=== PATIENT | male | born 1975 | race American Indian/Alaskan Native ===

== ENCOUNTER 2017-10-02 19:02 | Emergency (ER) | payer MEDICAID ==
[2017-10-02 19:10] VITALS: RESP 16; TEMP 98.6; O2SAT 100
[2017-10-02] MEDS ORDERED: FOSPHENYTOIN IM STA (19:43)
[2017-10-02] MEDS ORDERED: SODIUM CHLORIDE 0.9% IM STA (19:43)
--- NOTE | 2017-10-02 20:31 | ED PDOC ---
HPI: Seizure Time Seen by Provider: 10/02/17 19:27 Chief Complaint (Nursing): Seizure Chief Complaint (Provider): seizure History Per: Patient History/Exam Limitations: no limitations Recent Seizure Activity Began: Just Before Arrival Additional Complaint(s): pt reports h/o seizure disorder which required IM cerebyx to be injected by his father, but has been unable to obtain for 3 weeks Reports since then he has had 13 seizures, and then today 2 episodes. Pt known by me from frequent visits in the past for frequent visits for seizures and noncompliance with medications Past Medical History Reviewed: Historical Data, Nursing Documentation, Vital Signs Vital Signs: Last Vital Signs Temp 98.6 F 10/02/17 19:07 Pulse 94 H 10/02/17 19:07 Resp 16 10/02/17 19:07 BP 126/84 10/02/17 19:07 Pulse Ox 100 10/02/17 19:07 - Medical History PMH: Seizures - Family History Family History: States: No Known Family Hx - Social History Current smoker - smoking cessation education provided: Yes Alcohol: None Drugs: Denies - Allergies Allergies/Adverse Reactions: Allergies Allergy/AdvReac Type Severity Reaction Status Date / Time No Known Allergies Allergy Verified 10/02/17 19:10 Review of Systems ROS Statement: Except As Marked, All Systems Reviewed And Found Negative (and as per HPI) Neurological: Positive for: Seizures, Headache, Dizziness Physical Exam - Reviewed Nursing Documentation Reviewed: Yes Vital Signs Reviewed: Yes - Physical Exam Appears: Positive for: Non-toxic, No Acute Distress Head Exam: Positive for: ATRAUMATIC, NORMOCEPHALIC Skin: Positive for: Warm, Dry Eye Exam: Positive for: EOMI, PERRL ENT: Positive for: Pharynx Is (clear), Other (poor dentition) Neck: Positive for: Painless ROM, Supple Cardiovascular/Chest: Positive for: Regular Rate, Rhythm, Chest Non Tender. Negative for: Murmur Respiratory: Negative for: Accessory Muscle Use, Respiratory Distress Gastrointestinal/Abdominal: Positive for: Soft. Negative for: Tenderness Back: Positive for: Normal Inspection. Negative for: Decreased ROM Extremity: Positive for: Normal ROM. Negative for: Deformity Lymphatic: Negative for: Adenopathy Neurologic/Psych: Positive for: Alert, Oriented (x3). Negative for: Motor/ Sensory Deficits - ECG O2 Sat by Pulse Oximetry: 100 Disposition - Clinical Impression Clinical Impression: Seizure disorder - Disposition Referrals: [facility] [Outside] - 10/06/17 Disposition: Routine/Home Disposition Time: 20:20 Condition: STABLE Additional Instructions: CONTINUE YOUR MEDICATIONS PRESCRIBED FOLLOW UP WITH YOUR NEUROLOGIST AND CLINIC WITHIN A WEEK Instructions: Seizures, Adult (DC)
[2017-10-02] MEDS: FOSPHENYTOIN IM ONE ×2 (21:05→21:06)
[2017-10-02 21:32] VITALS: BP 120/84; PULSE 90
== END 2017-10-02 21:32 | disposition home or self-care (01) ==
LOC: H.ER 19:02
DX: G40.909 Epilepsy, unspecified, not intractable, without status epilepticus (principal)
CPT/HCPCS: 96372; 99284; Q2009

== ENCOUNTER 2017-10-06 12:42 | Emergency (ER) | payer MEDICAID ==
[2017-10-06 12:47] VITALS: BP 122/84; PULSE 86; RESP 16; TEMP 98.6; O2SAT 100
--- NOTE | 2017-10-06 13:24 | ED PDOC ---
HPI: Seizure Time Seen by Provider: 10/06/17 12:49 Chief Complaint (Nursing): Seizure History Per: Patient, EMS History/Exam Limitations: no limitations Number Of Seizures: One (today) Associated Symptoms: denies: Bit Tongue Additional Complaint(s): 42-YEAR-OLD male presents to ED via EMS for seizure. Pt reports he had 3 seizures yesterday and 1 seizure today. Pt reports he has not been taking his phenytoin in 21 days because pharmacy needs to order more. (-) tongue biting, (- ) head trauma. PMD: Candido Past Medical History Reviewed: Historical Data, Nursing Documentation, Vital Signs Vital Signs: Last Vital Signs Temp 98.6 F 10/06/17 12:45 Pulse 86 10/06/17 12:45 Resp 16 10/06/17 12:45 BP 122/84 10/06/17 12:45 Pulse Ox 100 10/06/17 13:33 - Medical History PMH: Seizures - Surgical History Other surgeries: dental surgery - Family History Family History: States: Unknown Family Hx - Social History Current smoker - smoking cessation education provided: No Alcohol: None Drugs: Denies - Allergies Allergies/Adverse Reactions: Allergies Allergy/AdvReac Type Severity Reaction Status Date / Time No Known Allergies Allergy Verified 10/02/17 19:10 Review of Systems ROS Statement: Except As Marked, All Systems Reviewed And Found Negative Constitutional: Negative for: Other (head trauma) ENT: Negative for: Other (tongue biting) Neurological: Positive for: Seizures Physical Exam - Reviewed Nursing Documentation Reviewed: Yes Vital Signs Reviewed: Yes - Physical Exam Appears: Positive for: Well Head Exam: Positive for: ATRAUMATIC, NORMAL INSPECTION, NORMOCEPHALIC Skin: Positive for: Normal Color, Warm, Dry Eye Exam: Positive for: Normal appearance, EOMI, PERRL ENT: Positive for: Normal ENT Inspection Neck: Positive for: Normal Cardiovascular/Chest: Positive for: Regular Rate, Rhythm Respiratory: Positive for: Normal Breath Sounds. Negative for: Respiratory Distress Gastrointestinal/Abdominal: Positive for: Normal Exam Back: Positive for: Normal Inspection Extremity: Positive for: Normal ROM. Negative for: Deformity Neurologic/Psych: Positive for: Alert, Oriented - ECG O2 Sat by Pulse Oximetry: 100 (RA) Pulse Ox Interpretation: Normal Medical Decision Making Medical Decision Making: Impression(s): Seizure 13:00 Plan: - Glucose, POC Routine 12:55 Glucose, POC Routine 74 mg/dl 13:21 Patient wants to leave as per RN. This patient is choosing to leave against medical advice. ED Provider has personally explained to the pt that choosing to do so may result in permanent bodily harm or . ED Provider discussed at great length that without further evaluation and monitoring there may be unforeseen circumstances and/or deterioration causing permanent bodily harm or as a result of their choice. The pt is alert, oriented, and shows the mental capacity to make clear decisions regarding the pts health care at this time. The pt has been advised that they should return to the ED immediately if they change their mind at any time, or if their condition begins to change or worsening any way. Scribe Attestation: Documented by Eloy Matos, acting as a scribe for Sara Fregoso MD. Provider Scribe Attestation: All medical record entries made by the Scribe were at my direction and personally dictated by me. I have reviewed the chart and agree that the record accurately reflects my personal performance of the history, physical exam, medical decision making, and the department course for this patient. I have also personally directed, reviewed, and agree with the discharge instructions and disposition. Disposition - Clinical Impression Clinical Impression: Recurrent seizures - Patient ED Disposition Is Patient to be Admitted: No - Disposition Disposition: Against Medical Advice Disposition Time: 13:28 Condition: UNKNOWN Forms: [employer] (Kyrgyz)
== END 2017-10-06 13:36 | disposition left against medical advice (07) ==
LOC: H.ER 12:42
DX: G40.909 Epilepsy, unspecified, not intractable, without status epilepticus (principal)

== ENCOUNTER 2017-10-14 23:41 | Emergency (ER) | payer MEDICAID ==
[2017-10-14 23:45] VITALS: RESP 16
[2017-10-15] MEDS ORDERED: Fosphenytoin 100 mg/2 ml Inj IM STA (00:04)
--- NOTE | 2017-10-15 00:08 | ED PDOC ---
HPI: Seizure Time Seen by Provider: 10/14/17 23:47 Chief Complaint (Nursing): Seizure History Per: Patient History/Exam Limitations: no limitations Recent Seizure Activity Began: Just Before Arrival Number Of Seizures: One Quality Of Seizure: Generalized Precipitating Factor(s): Missed Dose Of Anti-seizure Medication Additional History Per: Patient Additional Complaint(s): Patient with long-standing history of seizures presenting with seizure while in a cab, states that has not been able to get his fosphenytoin because of problems with the pharmacy. Patient asking to go home, does not want any intervention because he is aware of why he is having seizures, due to inability to get his medications. Past Medical History Reviewed: Historical Data, Nursing Documentation, Vital Signs Vital Signs: Last Vital Signs Temp 98.6 F 10/14/17 23:43 Pulse 98 H 10/14/17 23:43 Resp 16 10/14/17 23:43 BP 132/97 H 10/14/17 23:43 Pulse Ox 100 10/14/17 23:43 - Medical History PMH: Seizures - Family History Family History: States: Unknown Family Hx - Allergies Allergies/Adverse Reactions: Allergies Allergy/AdvReac Type Severity Reaction Status Date / Time No Known Allergies Allergy Verified 10/14/17 23:43 Review of Systems ROS Statement: Except As Marked, All Systems Reviewed And Found Negative Neurological: Positive for: Seizures Physical Exam - Reviewed Nursing Documentation Reviewed: Yes Vital Signs Reviewed: Yes - Physical Exam Appears: Positive for: Well, Non-toxic, No Acute Distress Head Exam: Positive for: ATRAUMATIC, NORMAL INSPECTION, NORMOCEPHALIC Skin: Positive for: Normal Color, Warm, DRY Eye Exam: Positive for: EOMI, Normal appearance, PERRL ENT: Positive for: Normal ENT Inspection Neck: Positive for: Normal, Painless ROM Cardiovascular/Chest: Positive for: Regular Rate, Rhythm Respiratory: Positive for: CNT, Normal Breath Sounds Gastrointestinal/Abdominal: Positive for: Normal Exam, Soft Back: Positive for: Normal Inspection Extremity: Positive for: Normal ROM Neurologic/Psych: Positive for: 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 Negative for: Motor/Sensory Deficits, Mood/Affect, Aphasia, Facial Droop - ECG O2 Sat by Pulse Oximetry: 100 Pulse Ox Interpretation: Normal Medical Decision Making Medical Decision Makin Patient presenting with seizure in setting of medication non-compliance -patient states he'll be able to get his medications tomorrow -normal vitals, normal exam -will give dose of cerebryx and refer to patient's neurologist Disposition - Clinical Impression Clinical Impression: Seizure disorder - Disposition Referrals: [facility] [Outside] Disposition: Routine/Home Disposition Time: 00:11 Condition: STABLE Instructions: Epilepsy in Adults
[2017-10-15] MEDS ORDERED: FOSPHENYTOIN IM STA (00:44)
[2017-10-15 05:28] VITALS: BP 110/64; PULSE 73; TEMP 97.9; O2SAT 97
== END 2017-10-15 05:33 | disposition home or self-care (01) ==
LOC: H.ER 23:41
DX: G40.909 Epilepsy, unspecified, not intractable, without status epilepticus (principal)
CPT/HCPCS: 96372; 99285; Q2009

== ENCOUNTER 2017-10-18 22:46 | Emergency (ER) | payer MEDICAID ==
--- NOTE | 2017-10-18 23:05 | ED PDOC ---
HPI: Seizure Time Seen by Provider: 10/18/17 22:53 Chief Complaint (Nursing): Seizure Chief Complaint (Provider): seizure History Per: Patient History/Exam Limitations: no limitations Additional Complaint(s): Pt has seizure prior to arrival. Known well to ER for frequent visits for noncompliance claiming he is unable to take medications by mouth and can only get IM injections of dilantin and having issues with the pharmacy providing it. Past Medical History Reviewed: Historical Data, Nursing Documentation, Vital Signs Vital Signs: Last Vital Signs Temp 98 F 10/18/17 22:47 Pulse 77 10/18/17 22:47 Resp 20 10/18/17 22:47 BP 117/82 10/18/17 22:47 Pulse Ox 100 10/18/17 23:11 - Medical History PMH: Seizures Denies: Chronic Kidney Disease - Family History Family History: States: Unknown Family Hx - Social History Current smoker - smoking cessation education provided: No Alcohol: None Drugs: Denies - Allergies Allergies/Adverse Reactions: Allergies Allergy/AdvReac Type Severity Reaction Status Date / Time No Known Allergies Allergy Verified 10/18/17 23:04 Review of Systems ROS Statement: Except As Marked, All Systems Reviewed And Found Negative (and as per HPI) Constitutional: Positive for: Malaise Neurological: Positive for: Seizures, Dizziness. Negative for: Weakness, Numbness, Change in Speech Physical Exam - Reviewed Nursing Documentation Reviewed: Yes Vital Signs Reviewed: Yes - Physical Exam Appears: Positive for: Non-toxic, No Acute Distress Head Exam: Positive for: ATRAUMATIC, NORMOCEPHALIC Skin: Positive for: Warm, Dry Eye Exam: Positive for: EOMI, PERRL Neck: Positive for: Painless ROM, Supple Cardiovascular/Chest: Positive for: Regular Rate, Rhythm. Negative for: Murmur Respiratory: Positive for: Normal Breath Sounds. Negative for: Respiratory Distress Gastrointestinal/Abdominal: Positive for: Soft. Negative for: Tenderness Back: Positive for: Normal Inspection. Negative for: Decreased ROM Extremity: Positive for: Normal ROM. Negative for: Deformity Lymphatic: Negative for: Adenopathy Neurologic/Psych: Positive for: Alert. Negative for: Motor/Sensory Deficits - ECG O2 Sat by Pulse Oximetry: 100 Disposition - Clinical Impression Clinical Impression: Seizure disorder Counseled Patient/Family Regarding: Studies Performed, Diagnosis - Disposition Referrals: Rocky Reis MD [Medical Doctor] - Disposition: Routine/Home Disposition Time: 23:03 Condition: STABLE Additional Instructions: TAKE ALL YOUR MEDICATIONS PRESCRIBED. Instructions: Seizures, Adult (DC)
[2017-10-18] MEDS ORDERED: SODIUM CHLORIDE 0.9% IM ONE ×2 (23:19→23:26)
[2017-10-18] MEDS ORDERED: FOSPHENYTOIN IM ONE ×2 (23:19→23:26)
[2017-10-18] MEDS ORDERED: Fosphenytoin 100 mg/2 ml Inj ONE ×2 (23:26→23:27)
[2017-10-18] MEDS ORDERED: Fosphenytoin 100 mg/2 ml Inj IM STA (23:30)
[2017-10-18 23:49] VITALS: BP 118/72; PULSE 76; RESP 18; TEMP 98.1; O2SAT 99
== END 2017-10-18 23:49 | disposition home or self-care (01) ==
LOC: H.ER 22:46
DX: G40.909 Epilepsy, unspecified, not intractable, without status epilepticus (principal); Z91.19 Patient's noncompliance with other medical treatment and regimen
CPT/HCPCS: 96372; 99284; Q2009

== ENCOUNTER 2017-10-25 23:02 | Emergency (ER) | payer MEDICAID ==
[2017-10-25 23:06] VITALS: TEMP 99.3
[2017-10-25] MEDS ORDERED: Fosphenytoin 100 mg/2 ml Inj IM STA (23:32)
[2017-10-25] MEDS ORDERED: Fosphenytoin 100 mg/2 ml Inj ONE (23:56)
--- NOTE | 2017-10-26 01:10 | ED PDOC ---
HPI: Seizure Time Seen by Provider: 10/25/17 23:09 Chief Complaint (Nursing): Seizure Chief Complaint (Provider): Seizure History Per: Patient History/Exam Limitations: no limitations Recent Seizure Activity Began: Just Before Arrival Number Of Seizures: One Precipitating Factor(s): Missed Dose Of Anti-seizure Medication Additional Complaint(s): 42 yo male with no medical problems presents after having a seizure. Pt states he has been getting them since he was 1 years old. Pt states due to issues with the pharmacy he was unable to have his IM cerebyx filled the last 2 weeks. PT states he does not want any tests completed in the Er. Past Medical History Reviewed: Historical Data, Nursing Documentation, Vital Signs Vital Signs: Last Vital Signs Temp 99.3 F 10/25/17 23:04 Pulse 92 H 10/25/17 23:04 Resp 16 10/25/17 23:04 BP 123/80 10/25/17 23:04 Pulse Ox 96 10/25/17 23:04 - Medical History PMH: Seizures Denies: Chronic Kidney Disease - Family History Family History: States: Unknown Family Hx - Allergies Allergies/Adverse Reactions: Allergies Allergy/AdvReac Type Severity Reaction Status Date / Time No Known Allergies Allergy Verified 10/25/17 23:04 Review of Systems ROS Statement: Except As Marked, All Systems Reviewed And Found Negative Constitutional: Negative for: Fever, Chills Cardiovascular: Negative for: Chest Pain Respiratory: Negative for: Cough, Shortness of Breath Gastrointestinal: Negative for: Nausea, Vomiting, Abdominal Pain Skin: Negative for: Bruising Neurological: Positive for: Seizures. Negative for: Weakness, Altered Mental Status, Headache Physical Exam - Reviewed Nursing Documentation Reviewed: Yes Vital Signs Reviewed: Yes - Physical Exam Appears: Positive for: Well, Non-toxic, No Acute Distress Head Exam: Positive for: ATRAUMATIC, NORMAL INSPECTION, NORMOCEPHALIC Skin: Positive for: Normal Color, Warm, DRY Eye Exam: Positive for: EOMI, Normal appearance, PERRL ENT: Positive for: Normal ENT Inspection Neck: Positive for: Normal, Painless ROM Cardiovascular/Chest: Positive for: Regular Rate, Rhythm Respiratory: Positive for: CNT, Normal Breath Sounds Back: Positive for: Normal Inspection Extremity: Positive for: Normal ROM Neurologic/Psych: Positive for: Alert, Oriented - ECG O2 Sat by Pulse Oximetry: 96 Disposition - Clinical Impression Clinical Impression: Seizure disorder - Disposition Disposition: Routine/Home Disposition Time: 01:03 Condition: GOOD Instructions: Seizures, Adult (DC) Forms: [employer] (Setswana)
[2017-10-26 01:19] VITALS: BP 120/77; PULSE 90; RESP 18; O2SAT 100
== END 2017-10-26 01:18 | disposition home or self-care (01) ==
LOC: H.ER 23:02
DX: G40.909 Epilepsy, unspecified, not intractable, without status epilepticus (principal)
CPT/HCPCS: 82948; 96372; 99285; Q2009

== ENCOUNTER 2017-12-13 23:13 | Emergency (ER) | payer MEDICAID ==
--- NOTE | 2017-12-13 23:51 | ED PDOC ---
Syncope/Near Syncope/Dizziness Chief Complaint (Provider): "I tripped on a chair and hit my head" History Per: Patient History/Exam Limitations: no limitations Onset/Duration Of Symptoms: Hrs Current Symptoms Are (Timing): Still Present Number Of Syncopal Episodes: (Patient denies losing consciouness) Possible Causative Factor(s): denies: Diurectics, New Medications, Recent Alcohol Additional Complaint(s): 42 y/o male w/ pmhx significant for multiple ER visits w/ c/o seizures, who states that he tripped on a chair, fell, and hit his head on the left side a few hours ago. He says that he became dizzy after falling. He denies loss of consciousness, tongue biting, nausea, vomiting, numbness/tingling, visual changes, headaches, loss of sensation. He denies having a seizure today. He also denies etoh and recreational drug use. - Symptoms Of CVA Recent Aspirin Use: No Current Coumadin Use?: No Recent Head Trauma: Yes <Meena Elaine - Last Filed: 12/14/17 05:54> <Skylar Carr - Last Filed: 12/15/17 04:51> Time Seen by Provider: 12/13/17 23:25 Chief Complaint (Nursing): Dizziness/Lightheaded Supervising Attending Note - Supervising Attending Note The Documented history was done by the: Physician Chamber Walker, Attending Physician The documented physical exam was done by the: Physician Chamber Walker, Attending Physician The documented procedures were done by the: Physician Chamber Walker, Attending Physician - Attestation: I have personally seen and examined this patient.: Yes I have fully participated in the care of the patient.: Yes I have reviewed all pertinent clinical information: Yes <Skylar Carr - Last Filed: 12/15/17 04:51> Past Medical History Reviewed: Vital Signs Vital Signs: Last Vital Signs Temp 97.9 F 12/13/17 23:15 Pulse 82 12/13/17 23:15 Resp 16 12/13/17 23:15 BP 154/99 H 12/13/17 23:15 Pulse Ox 99 12/13/17 23:15 - Medical History PMH: Seizures Denies: Chronic Kidney Disease - Family History Family History: States: Unknown Family Hx - Social History Current smoker - smoking cessation education provided: No Alcohol: None Drugs: Denies <Meena Elaine - Last Filed: 12/14/17 05:54> Reviewed: Historical Data, Nursing Documentation Vital Signs: Last Vital Signs Temp 97.9 F 12/13/17 23:15 Pulse 82 12/13/17 23:15 Resp 16 12/13/17 23:15 BP 154/99 H 12/13/17 23:15 Pulse Ox 99 12/14/17 00:10 - Surgical History Surgical History: No Surg Hx <Skylar Carr A - Last Filed: 12/15/17 04:51> - Home Medications Home Medications: Ambulatory Orders Medication Instructions Recorded Meclizine [Meclizine*] 25 mg PO Q6 PRN #20 tab 12/14/17 - Allergies Allergies/Adverse Reactions: Allergies Allergy/AdvReac Type Severity Reaction Status Date / Time No Known Allergies Allergy Verified 12/13/17 23:15 Review of Systems Constitutional: Negative for: Weakness Eyes: Negative for: Vision Change ENT: Negative for: Ear Pain Cardiovascular: Negative for: Chest Pain, Palpitations Respiratory: Negative for: Shortness of Breath Gastrointestinal: Negative for: Nausea, Vomiting Genitourinary Male: Negative for: Incontinence Musculoskeletal: Negative for: Neck Pain, Back Pain Skin: Negative for: Bruising Neurological: Positive for: Dizziness. Negative for: Weakness, Numbness, Incoordination, Confusion, Altered Mental Status, Headache <Meena Elaine - Last Filed: 12/14/17 05:54> ROS Statement: Except As Marked, All Systems Reviewed And Found Negative <Skylar Carr A - Last Filed: 12/15/17 04:51> Physical Exam - Reviewed Nursing Documentation Reviewed: Yes Vital Signs Reviewed: Yes - Physical Exam Appears: Positive for: No Acute Distress Head Exam: Positive for: ATRAUMATIC, NORMAL INSPECTION, NORMOCEPHALIC Skin: Positive for: Normal Color, Warm, Dry. Negative for: Diaphoresis Eye Exam: Positive for: Normal appearance, PERRL. Negative for: Nystagmus, Conjunctival injection ENT: Positive for: Normal ENT Inspection Neck: Positive for: Painless ROM Cardiovascular/Chest: Positive for: Regular Rate, Rhythm Respiratory: Positive for: Normal Breath Sounds Pulses-Radial (L): 2+ Pulses-Radial (R): 2+ Gastrointestinal/Abdominal: Positive for: Normal Exam, Bowel Sounds, Soft. 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 Negative for: Facial Droop <Meena Elaine - Last Filed: 12/14/17 05:54> - Physical Exam Extremity: Positive for: Normal ROM <Skylar Carr - Last Filed: 12/15/17 04:51> - ECG O2 Sat by Pulse Oximetry: 99 - Progress ED Course And Treament: Assessment: head trauma Plan: Head CT w/o contrast: negative Monitor mental status Monitor vitals Case discussed w/ attending physician <Meena Elaine - Last Filed: 12/14/17 05:54> - Progress Re-evaluation Time: 05:30 Condition: Re-examined, Improved <Skylar Carr - Last Filed: 12/15/17 04:51> Disposition - Disposition Disposition: Routine/Home Disposition Time: 05:55 <Meena Elaine - Last Filed: 12/14/17 05:54> - Patient ED Disposition Is Patient to be Admitted: No Doctor Will See Patient In The: Office Counseled Patient/Family Regarding: Studies Performed, Diagnosis, Need For Followup <Skylar Carr - Last Filed: 12/15/17 04:51> - Clinical Impression Clinical Impression: Head injury - Disposition Referrals: [facility] [Outside] Condition: GOOD Additional Instructions: Follow up with your PCP in 2-3 days. SEAMUS PENG, thank you for letting us take care of you today. Your provider was Skylar Carr MD and you were treated for SYNCOPE. The emergency medical care you received today was directed at your acute symptoms. If you were prescribed any medication, please fill it and take as directed. It may take several days for your symptoms to resolve. Return to the Emergency Department if your symptoms worsen, do not improve, or if you have any other problems. Please contact your doctor or call one of the physicians/clinics you have been referred to that are listed on the Patient Visit Information form that is included in your discharge packet. Bring any paperwork you were given at discharge with you along with any medications you are taking to your follow up visit. Our treatment cannot replace ongoing medical care by a primary care provider outside of the emergency department. Thank you for allowing the [employer] team to be part of your care today. If you had an X-Ray or CT scan: A Radiologist will review the ED reading if any change in treatment is needed we will contact you. If you had a blood, urine, or wound culture: It will take several days for the results, if any change in treatment is needed we will contact you. If you had an STI test: It will take 48 hours for the results. Please call after 1 week if you have not heard back. Instructions: Closed Head Injury
[2017-12-14 06:01] VITALS: BP 124/74; PULSE 72; RESP 12; TEMP 98; O2SAT 97
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
== END 2017-12-14 06:13 | disposition home or self-care (01) ==
LOC: H.ER 23:13
DX: S09.90XA Unspecified injury of head, initial encounter (principal); W18.09XA Striking against other object with subsequent fall, initial encounter

== ENCOUNTER 2017-12-14 06:57 | Emergency (ER) | payer MEDICAID ==
[2017-12-14 07:18] VITALS: RESP 19
--- NOTE | 2017-12-14 07:47 | ED PDOC ---
HPI: Headache Time Seen by Provider: 12/14/17 07:11 Chief Complaint (Nursing): Headache Chief Complaint (Provider): Headache History Per: Patient History/Exam Limitations: no limitations Onset/Duration Of Symptoms: Hrs (prior to arrival) Additional Complaint(s): Patient is a 42 y/o male with history of chronic vertigo who presents to the ED complaining of dizziness, onset prior to arrival. Patient was seen at this ED earlier today and was discharged after evaluation for a head injury; his CT was negative and patient states they forgot to give him medications for dizziness. He reports that after being discharged he fell asleep in the waiting all night. Patient was discharged at 06:13 but because he was still feeling dizzy he came back. Past Medical History Reviewed: Historical Data, Nursing Documentation, Vital Signs Vital Signs: Last Vital Signs Temp 98.9 F 12/14/17 07:15 Pulse 90 12/14/17 07:15 Resp 19 12/14/17 07:15 BP 138/86 12/14/17 07:15 Pulse Ox 97 12/14/17 07:15 - Medical History PMH: Seizures Denies: Chronic Kidney Disease Other PMH: chronic vertigo - Surgical History Surgical History: No Surg Hx - Family History Family History: States: Unknown Family Hx - Home Medications Home Medications: Ambulatory Orders Medication Instructions Recorded Meclizine [Meclizine*] 25 mg PO Q6 PRN #20 tab 12/14/17 - Allergies Allergies/Adverse Reactions: Allergies Allergy/AdvReac Type Severity Reaction Status Date / Time No Known Allergies Allergy Verified 12/13/17 23:15 Review of Systems ROS Statement: Except As Marked, All Systems Reviewed And Found Negative Constitutional: Negative for: Fever Neurological: Positive for: Headache, Dizziness Physical Exam - Reviewed Nursing Documentation Reviewed: Yes Vital Signs Reviewed: Yes - Physical Exam Appears: Positive for: Non-toxic, No Acute Distress Head Exam: Positive for: ATRAUMATIC, NORMOCEPHALIC Skin: Positive for: Normal Color, Warm, Dry Eye Exam: Positive for: EOMI, Normal appearance, PERRL Neck: Positive for: Normal, Painless ROM, Supple Cardiovascular/Chest: Positive for: Regular Rate, Rhythm. Negative for: Murmur Respiratory: Positive for: Normal Breath Sounds. Negative for: Respiratory Distress Gastrointestinal/Abdominal: Positive for: Normal Exam, Soft. Negative for: Tenderness Back: Positive for: Normal Inspection. Negative for: L CVA Tenderness, R CVA Tenderness Extremity: Positive for: Normal ROM. Negative for: Pedal Edema, Deformity Neurologic/Psych: Positive for: Alert, Oriented. Negative for: Motor/Sensory Deficits - ECG O2 Sat by Pulse Oximetry: 97 (RA) Pulse Ox Interpretation: Normal Medical Decision Making Medical Decision Making: Time: 07:27 Impression: dizziness Initial Plan: --Antivert ----- Scribe Attestation: Documented by Nahun Faye, acting as a scribe for Sara Fregoso MD. Provider Scribe Attestation: All medical record entries made by the Scribe were at my direction and personally dictated by me. I have reviewed the chart and agree that the record accurately reflects my personal performance of the history, physical exam, medical decision making, and the department course for this patient. I have also personally directed, reviewed, and agree with the discharge instructions and disposition. Disposition - Clinical Impression Clinical Impression: Chronic vertigo - Disposition Referrals: [facility] [Outside] Condition: STABLE Prescriptions: Meclizine [Meclizine*] 25 mg PO Q6 PRN #20 tab PRN Reason: Dizziness Instructions: Vertigo (a Type of Dizziness) Forms: [employer] (Citizen Of [place])
[2017-12-14 08:54] VITALS: BP 130/78; PULSE 86; TEMP 97; O2SAT 98
== END 2017-12-14 08:55 | disposition home or self-care (01) ==
LOC: H.ER 06:57
DX: R42 Dizziness and giddiness (principal)

== ENCOUNTER 2018-03-01 18:17 | Emergency (ER) | payer MEDICARE, MEDICAID ==
[2018-03-01] MEDS ORDERED: Fosphenytoin 100 mg/2 ml Inj IV STA (18:32)
--- NOTE | 2018-03-01 18:36 | ED PDOC ---
HPI: Seizure Time Seen by Provider: 03/01/18 18:31 Chief Complaint (Nursing): Seizure Chief Complaint (Provider): seizures History Per: Patient, EMS History/Exam Limitations: clinical condition Recent Seizure Activity Began: Just Before Arrival Number Of Seizures: Multiple Length Of Seizures (Duration): Unknown Quality Of Seizure: Generalized Precipitating Factor(s): Missed Dose Of Anti-seizure Medication Associated Symptoms: Incontinence Of Urine, Injury As A Result Of Seizure Activity ("bump on head") Severity: Moderate Additional Complaint(s): 42yo male known hx seizures states hasnt taken his medication in 2 weeks because "it didnt come in", states has had several seizures over last few days, [facility] ([facility]) and earlier today. Denies fever, extremity pain, neck pain, does note mild headache R parietal area where "i bumped my head". Against Medical Advice - AMA Patient Left Against Medical Advice: The patient declines admission to the hospital and wishes to leave the Emergency Department. This action is against my medical advice. This decision was made with informed refusal. The patient was told that admission to the hospital is necessary. Explanation of the reasons why were discussed. The risks of leaving were explained to the patient and include, but are not limited to, worsening of known or currently unknown conditions, permanent disability and from undiagnosed or untreated conditions. The patient has the capacity to make this informed decision and understands my explanation of the current medical problem and risks of leaving. The patient voluntarily accepts these risks and signed an AMA form documenting our conversation. The patient was given the opportunity to ask questions and reconsider. The pat ient was encouraged to return to the Emergency Department at any time for further care. Past Medical History Reviewed: Historical Data, Nursing Documentation, Vital Signs Vital Signs: Last Vital Signs Temp 98.1 F 03/01/18 18:22 Pulse 93 H 03/01/18 18:22 Resp 20 03/01/18 18:22 BP 140/90 03/01/18 18:22 Pulse Ox 100 03/01/18 18:22 - Medical History PMH: Seizures Denies: Chronic Kidney Disease - Family History Family History: States: Unknown Family Hx - Social History Drugs: Denies - Home Medications Home Medications: Ambulatory Orders Medication Instructions Recorded Meclizine [Meclizine*] 25 mg PO Q6 PRN #20 tab 12/14/17 Phenytoin Sodium Extended 100 mg PO BID #30 capsule 03/01/18 - Allergies Allergies/Adverse Reactions: Allergies Allergy/AdvReac Type Severity Reaction Status Date / Time No Known Allergies Allergy Verified 12/13/17 23:15 Review of Systems ROS Statement: Except As Marked, All Systems Reviewed And Found Negative Constitutional: Negative for: Fever Cardiovascular: Negative for: Chest Pain Gastrointestinal: Negative for: Abdominal Pain Genitourinary Male: Negative for: Dysuria Musculoskeletal: Negative for: Neck Pain Skin: Negative for: Rash, Lesions Neurological: Positive for: Seizures, Headache, Dizziness. Negative for: Weakness, Numbness Physical Exam - Reviewed Nursing Documentation Reviewed: Yes Vital Signs Reviewed: Yes - Physical Exam Appears: Positive for: Well, Non-toxic, No Acute Distress Head Exam: Positive for: NORMAL INSPECTION, NORMOCEPHALIC. Negative for: ATRAUMATIC (tender R parietal) Skin: Positive for: Normal Color, Warm, DRY Eye Exam: Positive for: EOMI, Normal appearance, PERRL ENT: Positive for: Normal ENT Inspection Neck: Positive for: Normal, Painless ROM Cardiovascular/Chest: Positive for: Regular Rate, Rhythm Respiratory: Positive for: CNT, Normal Breath Sounds Gastrointestinal/Abdominal: Positive for: Normal Exam, Soft Back: Positive for: Normal Inspection Extremity: Positive for: Normal ROM Neurologic/Psych: Positive for: Alert, Oriented - ECG O2 Sat by Pulse Oximetry: 100 Medical Decision Making Medical Decision Making: check dilantin level, labs, load cerbeyx and CT brain endorse Dr Carr 7pm patient refusing IV placement, requests only his known dose of phosphenytoin 500mg IM and wants to leave hospital AMA. Understands risks of recurrent seizures, brain injury, , or other yet unforseen complication. Disposition - Clinical Impression Clinical Impression: Generalized seizure, Recurrent seizures - Patient ED Disposition Is Patient to be Admitted: Transfer of Care - Disposition Referrals: [facility] [Outside] Disposition: Transfer of Care Disposition Time: 18:55 Condition: STABLE Additional Instructions: LEFT HOSPITAL AGAINST MEDICAL ADVICE. TAKE MEDICATIONS DIRECTED. RETURN TO ER FOR ANY CONCERN. Prescriptions: Phenytoin Sodium Extended 100 mg PO BID #30 capsule Instructions: Epilepsy in Adults, Leaving Against Medical Advice Forms: [employer] ([place]ian) Patient Signed Over To: Skylar Carr
[2018-03-01] MEDS ORDERED: Fosphenytoin 100 mg/2 ml Inj IM ONE (19:11)
[2018-03-01] MEDS ORDERED: Fosphenytoin 100 mg/2 ml Inj ONE ×2 (19:34→19:37)
[2018-03-01 22:37] VITALS: BP 127/85; PULSE 88; RESP 18; TEMP 98.2; O2SAT 98
--- NOTE | 2018-03-01 23:20 | ED PDOC ---
- ECG O2 Sat by Pulse Oximetry: 98 (RA) Pulse Ox Interpretation: Normal - Progress Re-evaluation Time: 12:15 Condition: Re-examined, Improved Medical Decision Making Medical Decision Makin:00 Patient endorsed to me by Dr. Landers pending CT head study and results. 23:[address] head results. 23:36 FINDINGS: BRAIN No acute intraparenchymal hemorrhage. No mass lesion. No CT evidence for acute territorial infarct. No midline shift or extra-axial collections. VENTRICLES: No hydrocephalus. ORBITS: The orbits are unremarkable. SINUSES AND MASTOIDS: The paranasal sinuses and mastoid air cells are clear. BONES: No fracture. SOFT TISSUES: Unremarkable. IMPRESSION: No acute intracranial abnormality. Scribe Attestation: Documented by Danay Lombardi, acting as a scribe for Skylar Carr MD. Provider Scribe Attestation: All medical record entries made by the Scribe were at my direction and personally dictated by me. I have reviewed the chart and agree that the record accurately reflects my personal performance of the history, physical exam, medical decision making, and the department course for this patient. I have also personally directed, reviewed, and agree with the discharge instructions and disposition Disposition - Clinical Impression Clinical Impression: Generalized seizure, Recurrent seizures, Left against medical advice - POA Present On Arrival: None - Disposition Referrals: [facility] [Outside] Disposition: AGAINST MEDICAL ADVICE Disposition Time: 12:15 Condition: GOOD Additional Instructions: LEFT HOSPITAL AGAINST MEDICAL ADVICE. TAKE MEDICATIONS DIRECTED. RETURN TO ER FOR ANY CONCERN. Prescriptions: Fosphenytoin [Cerebyx] 500 mg IM BID #60 vial RX: [place], Disposable [Easy Touch Hypodermic Needle] 1 each MC BID #60 dis.needle RX: Phenytoin Sodium Extended 100 mg PO BID #30 capsule RX: Syringe, Disposable, 10 ml [Easy Touch Luer Lock Syringe] 1 each MC BID #60 disp.syrin Instructions: Epilepsy in Adults, Leaving Against Medical Advice Forms: [employer] ([place]ian)
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
== END 2018-03-02 00:39 | disposition left against medical advice (07) ==
LOC: H.ER 18:17
DX: G40.909 Epilepsy, unspecified, not intractable, without status epilepticus (principal); Z91.14 Patient's other noncompliance with medication regimen
CPT/HCPCS: 70450; 82948; 96372; 99285; Q2009

== ENCOUNTER 2018-03-28 15:25 | Emergency (ER) | payer MEDICARE, MEDICAID ==
[2018-03-28 15:31] VITALS: BP 119/86; PULSE 90; RESP 16; TEMP 96.9; O2SAT 99
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
[2018-03-28] MEDS ORDERED: FOSPHENYTOIN IM STA (17:22)
== END 2018-03-28 19:03 | disposition home or self-care (01) ==
LOC: H.ER 15:25
DX: G40.909 Epilepsy, unspecified, not intractable, without status epilepticus (principal); W19.XXXA Unspecified fall, initial encounter
CPT/HCPCS: 96372; 99285; Q2009

== ENCOUNTER 2018-04-23 06:44 | Emergency (ER) | payer MEDICARE, MEDICAID ==
[2018-04-23 06:54] VITALS: TEMP 97.8
--- NOTE | 2018-04-23 07:28 | ED PDOC ---
HPI: Seizure Time Seen by Provider: 04/23/18 07:17 Chief Complaint (Nursing): Seizure Chief Complaint (Provider): Seizure History Per: Patient History/Exam Limitations: no limitations Additional Complaint(s): Yessenia Carr is a 42 year old male, with a PMHx of questionable seizure disorder, presenting for seizure medication. Patient states he has a history of seizure disorder and reports his seizures are precipitated by an aura which he feels is starting. Patient is known to this ED for multiple visits requesting IM Cerebyx. Patient states he has not received Cerebyx in multiple weeks and has not had any anti-seizure medications. Patient otherwise denies any injury. Past Medical History Reviewed: Historical Data, Nursing Documentation, Vital Signs Vital Signs: Last Vital Signs Temp 97.8 F 04/23/18 06:52 Pulse 97 H 04/23/18 06:52 Resp 17 04/23/18 06:52 BP 127/76 04/23/18 06:52 Pulse Ox 100 04/23/18 06:52 - Medical History PMH: Seizures Denies: Chronic Kidney Disease - Surgical History Surgical History: No Surg Hx - Family History Family History: States: Unknown Family Hx - Home Medications Home Medications: Ambulatory Orders Medication Instructions Recorded Meclizine [Meclizine*] 25 mg PO Q6 PRN #20 tab 12/14/17 Phenytoin Sodium Extended 100 mg PO BID #30 capsule 03/01/18 [place], Disposable [Easy Touch 1 each MC BID #60 dis.needle 03/02/18 Hypodermic Needle] Fosphenytoin [Cerebyx] 500 mg IM BID #60 vial 03/28/18 Syringe, Disposable, 10 ml [Easy 1 each MC BID #60 disp.syrin 03/28/18 Touch Luer Lock Syringe] Phenytoin, Extended [Dilantin 100 mg PO TID #30 cer 04/23/18 [place]] - Allergies Allergies/Adverse Reactions: Allergies Allergy/AdvReac Type Severity Reaction Status Date / Time No Known Allergies Allergy Verified 03/28/18 15:27 Review of Systems ROS Statement: Except As Marked, All Systems Reviewed And Found Negative Physical Exam - Reviewed Nursing Documentation Reviewed: Yes Vital Signs Reviewed: Yes - Physical Exam Appears: Positive for: Non-toxic, No Acute Distress Head Exam: Positive for: ATRAUMATIC, NORMAL INSPECTION, NORMOCEPHALIC Skin: Positive for: Normal Color, Warm, Dry. Negative for: Rash Eye Exam: Positive for: EOMI, Normal appearance, PERRL ENT: Positive for: Normal ENT Inspection Neck: Positive for: Normal, Painless ROM, Supple Cardiovascular/Chest: Positive for: Regular Rate, Rhythm. Negative for: Murmur Respiratory: Positive for: Normal Breath Sounds. Negative for: Respiratory Distress Gastrointestinal/Abdominal: Positive for: Normal Exam, Soft. Negative for: Tenderness Back: Positive for: Normal Inspection. Negative for: L CVA Tenderness, R CVA Tenderness, Vertebral Tenderness Extremity: Positive for: Normal ROM. Negative for: Pedal Edema, Deformity Neurologic/Psych: Positive for: Alert, semiconductor wafers marker II-XII (intact), Oriented. Negative for: Motor/Sensory Deficits, Aphasia, Facial Droop - ECG O2 Sat by Pulse Oximetry: 100 Medical Decision Making Medical Decision Making: Plan: Unclear if patient has true seizures or pseudoseizures, however, will load with Cerebyx 1gm IM and provide prescriptions for Dilantin and outpatient follow up. No seizure activity noted in ED. Patient is stable from a neurological perspective. Scribe Attestation: Documented by Shukri Olmos, acting as a scribe for Donovan Darby MD. Provider Scribe Attestation: All medical record entries made by the Scribe were at my direction and personally dictated by me. I have reviewed the chart and agree that the record accurately reflects my personal performance of the history, physical exam, medical decision making, and the department course for this patient. I have also personally directed, reviewed, and agree with the discharge instructions and disposition. Disposition - Clinical Impression Clinical Impression: Seizure disorder - Patient ED Disposition Is Patient to be Admitted: No Counseled Patient/Family Regarding: Diagnosis, Need For Followup, Rx Given - Disposition Referrals: [facility] [Outside] Disposition: Routine/Home Disposition Time: 08:19 Condition: FAIR Prescriptions: Phenytoin, Extended [Dilantin [place]] 100 mg PO TID #30 cer Instructions: Seizures, Adult (DC) Forms: [employer] (Hungarian)
[2018-04-23] MEDS ORDERED: FOSPHENYTOIN IM ONE (08:15)
[2018-04-23] MEDS ORDERED: Fosphenytoin 100 mg/2 ml Inj ONE (08:36)
[2018-04-23 10:20] VITALS: BP 143/69; PULSE 78; RESP 18; O2SAT 98
== END 2018-04-23 10:20 | disposition home or self-care (01) ==
LOC: H.ER 06:44
DX: G40.909 Epilepsy, unspecified, not intractable, without status epilepticus (principal)
CPT/HCPCS: 96372; 99284; Q2009

== ENCOUNTER 2018-05-01 19:40 | Emergency (ER) | payer MEDICARE, MEDICAID ==
[2018-05-01 20:51] VITALS: TEMP 98.2
[2018-05-01] MEDS ORDERED: Fosphenytoin 100 mg/2 ml Inj ONE (21:29)
[2018-05-01] MEDS ORDERED: Fosphenytoin 100 mg/2 ml Inj IM ONE (21:30)
--- NOTE | 2018-05-01 21:38 | ED PDOC ---
HPI: Seizure Time Seen by Provider: 05/01/18 21:07 Chief Complaint (Nursing): Seizure Chief Complaint (Provider): Seizure History Per: Patient History/Exam Limitations: no limitations Recent Seizure Activity Began: Days Ago: (x 2) Number Of Seizures: Multiple Length Of Seizures (Duration): Unknown Quality Of Seizure: Generalized Precipitating Factor(s): Missed Dose Of Anti-seizure Medication Additional Complaint(s): 42 year old male, well known to this provider and the ED for multiple visits related to seizures, presents to the ED with complaints of seizures. Patient reports 2 seizures in the last 2 days which is typical for him. He states that he has not received IM fosphenytoin in the last two weeks due to a prescription error. Patient's last seizure was yesterday. He is requesting a dose of fosphenytoin. Offers no other complaints. PMD: none provided Past Medical History Reviewed: Historical Data, Nursing Documentation, Vital Signs Vital Signs: Last Vital Signs Temp 98.2 F 05/01/18 20:49 Pulse 98 H 05/01/18 20:49 Resp 18 05/01/18 20:49 BP 116/73 05/01/18 20:49 Pulse Ox 100 05/01/18 20:49 - Medical History PMH: Seizures Denies: Chronic Kidney Disease - Surgical History Surgical History: No Surg Hx - Family History Family History: States: Unknown Family Hx - Home Medications Home Medications: Ambulatory Orders Medication Instructions Recorded RX: Meclizine [Meclizine*] 25 mg PO Q6 PRN #20 tab 12/14/17 RX: Phenytoin Sodium Extended 100 mg PO BID #30 capsule 03/01/18 RX: [place], Disposable [Easy 1 each MC BID #60 dis.needle 03/02/18 Touch Hypodermic Needle] Fosphenytoin [Cerebyx] 500 mg IM BID #60 vial 03/28/18 RX: Syringe, Disposable, 10 ml 1 each MC BID #60 disp.syrin 03/28/18 [Easy Touch Luer Lock Syringe] Phenytoin, Extended [Dilantin 100 mg PO TID #30 cer 04/23/18 [place]] RX: Fosphenytoin [Cerebyx] 250 mg IM BID #10 vial 05/02/18 - Allergies Allergies/Adverse Reactions: Allergies Allergy/AdvReac Type Severity Reaction Status Date / Time No Known Allergies Allergy Verified 05/01/18 20:49 Review of Systems ROS Statement: Except As Marked, All Systems Reviewed And Found Negative Neurological: Positive for: Seizures Physical Exam - Reviewed Nursing Documentation Reviewed: Yes Vital Signs Reviewed: Yes - Physical Exam Appears: Positive for: Non-toxic, No Acute Distress Head Exam: Positive for: ATRAUMATIC, NORMAL INSPECTION, NORMOCEPHALIC Skin: Positive for: Normal Color, Warm, Dry. Negative for: Rash Eye Exam: Positive for: EOMI, Normal appearance, PERRL Neck: Positive for: Normal, Painless ROM, Supple Cardiovascular/Chest: Positive for: Regular Rate, Rhythm. Negative for: Murmur Respiratory: Positive for: Normal Breath Sounds. Negative for: Wheezing, Respiratory Distress Gastrointestinal/Abdominal: Positive for: Normal Exam, Soft. Negative for: Tenderness Extremity: Positive for: Normal ROM. Negative for: Deformity Neurologic/Psych: Positive for: Alert, Oriented (x 3). Negative for: Motor/Sensory Deficits - ECG O2 Sat by Pulse Oximetry: 100 (RA) Pulse Ox Interpretation: Normal Medical Decision Making Medical Decision Makin:20 Impression: seizure Initial Plan: --Cerebyx 500 mg IM 1AM Patient seizure free for duration of ED visit and is stable for discharge DX Seizure D/O Provider reinforced need for patient to follow up with his Neurologist; limited supply of Cerebyx prescribed Scribe Attestation: Documented by Cassandra Solorio acting as a scribe for Reyes Marcus MD Provider Scribe Attestation: All medical record entries made by the Scribe were at my direction and personally dictated by me. I have reviewed the chart and agree that the record accurately reflects my personal performance of the history, physical exam, medical decision making, and the department course for this patient. I have also personally directed, reviewed, and agree with the discharge instructions and disposition. Disposition - Clinical Impression Clinical Impression: Seizure disorder - Disposition Disposition: Routine/Home Disposition Time: 01:00 Condition: STABLE Prescriptions: RX: Fosphenytoin [Cerebyx] 250 mg IM BID #10 vial Instructions: Seizures, Adult (DC) Forms: [employer] (Irish)
[2018-05-02 06:29] VITALS: BP 113/70; PULSE 89; RESP 16
[2018-05-02 06:35] VITALS: O2SAT 100
== END 2018-05-02 02:45 | disposition home or self-care (01) ==
LOC: H.ER 19:40
DX: G40.909 Epilepsy, unspecified, not intractable, without status epilepticus (principal)
CPT/HCPCS: 96372; 99284; Q2009

== ENCOUNTER 2018-05-08 18:37 | Emergency (ER) | payer MEDICARE, MEDICAID ==
--- NOTE | 2018-05-08 19:38 | ED PDOC ---
HPI: Seizure Time Seen by Provider: 05/08/18 19:20 Chief Complaint (Nursing): Seizure Chief Complaint (Provider): seizure History Per: Patient History/Exam Limitations: no limitations Additional Complaint(s): Pt. with seizure hx and states he has been having frequent seizures since he has not able to fill his rx for fosphenytoin. Pt. states rx was not signed. He gets IM 500mg bid. No nausea, vomit, diarrhea, weakness, headaches, pain, alcohol and drugs. No back pain. Here multiple times for same. Past Medical History Reviewed: Nursing Documentation, Vital Signs Vital Signs: Last Vital Signs Temp 98.4 F 05/08/18 19:00 Pulse 99 H 05/08/18 19:00 Resp 18 05/08/18 19:00 BP 141/84 05/08/18 19:00 Pulse Ox 100 05/08/18 19:00 - Medical History PMH: Seizures Denies: Chronic Kidney Disease - Surgical History Surgical History: No Surg Hx - Family History Family History: States: Unknown Family Hx - Home Medications Home Medications: Ambulatory Orders Medication Instructions Recorded Meclizine [Meclizine*] 25 mg PO Q6 PRN #20 tab 12/14/17 Phenytoin Sodium Extended 100 mg PO BID #30 capsule 03/01/18 [place], Disposable [Easy Touch 1 each MC BID #60 dis.needle 03/02/18 Hypodermic Needle] Fosphenytoin [Cerebyx] 500 mg IM BID #60 vial 03/28/18 Syringe, Disposable, 10 ml [Easy 1 each MC BID #60 disp.syrin 03/28/18 Touch Luer Lock Syringe] Phenytoin, Extended [Dilantin 100 mg PO TID #30 cer 04/23/18 [place]] Fosphenytoin [Cerebyx] 250 mg IM BID #10 vial 05/02/18 Fosphenytoin [Cerebyx] 500 mg IM BID 10 Days vial 05/08/18 - Allergies Allergies/Adverse Reactions: Allergies Allergy/AdvReac Type Severity Reaction Status Date / Time No Known Allergies Allergy Verified 05/08/18 18:58 Review of Systems ROS Statement: Except As Marked, All Systems Reviewed And Found Negative Neurological: Positive for: Seizures Physical Exam - Reviewed Nursing Documentation Reviewed: Yes Vital Signs Reviewed: Yes - Physical Exam Appears: Positive for: Non-toxic, No Acute Distress Head Exam: Positive for: ATRAUMATIC, NORMAL INSPECTION, NORMOCEPHALIC Skin: Positive for: Normal Color, Warm, DRY Eye Exam: Positive for: EOMI, Normal appearance, PERRL ENT: Positive for: Normal ENT Inspection Neck: Positive for: Normal, Painless ROM Cardiovascular/Chest: Positive for: Regular Rate, Rhythm Respiratory: Positive for: CNT, Normal Breath Sounds Gastrointestinal/Abdominal: Positive for: Normal Exam, Soft. Negative for: Tenderness Back: Positive for: Normal Inspection. Negative for: L CVA Tenderness, R CVA Tenderness Extremity: Positive for: Normal ROM. 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 Negative for: Motor/Sensory Deficits, Aphasia, Facial Droop - ECG O2 Sat by Pulse Oximetry: 100 - Progress ED Course And Treament: 1945: Will give cerebryx 500mg IM same as previous visits and dc. Stable. AAOx3. Disposition - Clinical Impression Clinical Impression: Frequent seizures - Patient ED Disposition Is Patient to be Admitted: No Counseled Patient/Family Regarding: Diagnosis, Need For Followup - Disposition Referrals: [facility] [Outside] - 05/11/18 Disposition: Routine/Home Disposition Time: 19:48 Condition: STABLE Additional Instructions: Return if not better in 3 days. Prescriptions: Fosphenytoin [Cerebyx] 500 mg IM BID 10 Days vial Instructions: Seizures, Adult (DC)
[2018-05-08] MEDS ORDERED: FOSPHENYTOIN IM STA (20:10)
[2018-05-08 21:35] VITALS: BP 120/78; PULSE 78; RESP 19; TEMP 97.7; O2SAT 98
== END 2018-05-08 21:37 | disposition home or self-care (01) ==
LOC: H.ER 18:37
DX: R56.9 Unspecified convulsions (principal)
CPT/HCPCS: 96372; 99284; Q2009

== ENCOUNTER 2018-05-29 17:56 | Emergency (ER) | payer MEDICARE, MEDICAID ==
[2018-05-29 18:11] VITALS: O2SAT 100
[2018-05-29] MEDS ORDERED: Fosphenytoin 100 mg/2 ml Inj IM SCH (20:00)
--- NOTE | 2018-05-29 20:34 | ED PDOC ---
HPI: Seizure Time Seen by Provider: 05/29/18 19:49 Chief Complaint (Nursing): Seizure Chief Complaint (Provider): Seizure History Per: Patient History/Exam Limitations: no limitations Additional Complaint(s): 42 year old male, well known to this provider and the ED for multiple visits related to seizures, presents today with complaints of a possible seizure prior to arrival. He is requesting a dose of fosphenytoin. Offers no other complaints. PMD: none provided Past Medical History Reviewed: Historical Data, Nursing Documentation, Vital Signs Vital Signs: Last Vital Signs Temp 98.2 F 05/29/18 18:09 Pulse 111 H 05/29/18 18:09 Resp 20 05/29/18 18:09 BP 124/84 05/29/18 18:09 Pulse Ox 100 05/29/18 18:09 - Medical History PMH: Seizures Denies: Chronic Kidney Disease - Surgical History Surgical History: No Surg Hx - Family History Family History: States: Unknown Family Hx - Social History Current smoker - smoking cessation education provided: No Alcohol: None Drugs: Denies - Home Medications Home Medications: Ambulatory Orders Medication Instructions Recorded Meclizine [Meclizine*] 25 mg PO Q6 PRN #20 tab 12/14/17 Phenytoin Sodium Extended 100 mg PO BID #30 capsule 03/01/18 [place], Disposable [Easy Touch 1 each MC BID #60 dis.needle 03/02/18 Hypodermic Needle] Fosphenytoin [Cerebyx] 500 mg IM BID #60 vial 03/28/18 Syringe, Disposable, 10 ml [Easy 1 each MC BID #60 disp.syrin 03/28/18 Touch Luer Lock Syringe] Phenytoin, Extended [Dilantin 100 mg PO TID #30 cer 04/23/18 [place]] Fosphenytoin [Cerebyx] 250 mg IM BID #10 vial 05/02/18 Fosphenytoin [Cerebyx] 500 mg IM BID 10 Days vial 05/08/18 - Allergies Allergies/Adverse Reactions: Allergies Allergy/AdvReac Type Severity Reaction Status Date / Time No Known Allergies Allergy Verified 05/29/18 18:09 Review of Systems ROS Statement: Except As Marked, All Systems Reviewed And Found Negative Neurological: Positive for: Seizures (possible) Physical Exam - Reviewed Nursing Documentation Reviewed: Yes Vital Signs Reviewed: Yes - Physical Exam Appears: Positive for: No Acute Distress Head Exam: Positive for: ATRAUMATIC, NORMAL INSPECTION, NORMOCEPHALIC Skin: Positive for: Normal Color, Warm Eye Exam: Positive for: Normal appearance, EOMI, PERRL Neck: Positive for: Normal, Painless ROM, Supple Cardiovascular/Chest: Positive for: Regular Rate, Rhythm Respiratory: Positive for: Normal Breath Sounds. Negative for: Respiratory Di stress Gastrointestinal/Abdominal: Positive for: Normal Exam, Soft. Negative for: Tenderness Back: Positive for: Normal Inspection Extremity: Positive for: Normal ROM (all extremities) Neurologic/Psych: Positive for: Alert, Oriented (x3). Negative for: Motor/Sensory Deficits - ECG O2 Sat by Pulse Oximetry: 100 (RA) Pulse Ox Interpretation: Normal Medical Decision Making Medical Decision Making: Time: 1999 Initial Impression: 42 year old male with seizure activity Initial Plan: --Cerebyx 500mg IM 2230 Patient stable for discharge with diagnosis of recurrent seizure history. --------- ------- Scribe Attestation: Documented by Karely Mcfarland acting as a scribe for Reyes Marcus MD. Provider Scribe Attestation: All medical record entries made by the Scribe were at my direction and personally dictated by me. I have reviewed the chart and agree that the record accurately reflects my personal performance of the history, physical exam, medical decision making, and the department course for this patient. I have also personally directed, reviewed, and agree with the discharge instructions and disposition. Disposition - Clinical Impression Clinical Impression: Recurrent seizures - Patient ED Disposition Is Patient to be Admitted: No - Disposition Disposition: Routine/Home Disposition Time: 22:30 Condition: STABLE Instructions: Seizures, Adult (DC) Forms: [employer] (Divehi)
[2018-05-29] MEDS ORDERED: Fosphenytoin 100 mg/2 ml Inj IM STA (21:07)
[2018-05-29 22:46] VITALS: BP 116/66; PULSE 99; RESP 16; TEMP 98
== END 2018-05-29 22:54 | disposition home or self-care (01) ==
LOC: H.ER 17:56
DX: G40.909 Epilepsy, unspecified, not intractable, without status epilepticus (principal)
CPT/HCPCS: 96372; 99285; Q2009

== ENCOUNTER 2018-06-04 23:31 | Emergency (ER) | payer MEDICARE, MEDICAID ==
[2018-06-04 23:39] VITALS: RESP 18
[2018-06-05] MEDS ORDERED: Fosphenytoin 100 mg/2 ml Inj IM STA
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
[2018-06-05] MEDS ORDERED: FOSPHENYTOIN IM STA (00:56)
[2018-06-05 04:13] VITALS: BP 110/58; PULSE 78; TEMP 98.5; O2SAT 97
--- NOTE | 2018-06-05 15:19 | CT ---
Date of service: 06/05/2018 PROCEDURE: CT HEAD WITHOUT CONTRAST. HISTORY: seizure, head injury COMPARISON: 03/01/2018 TECHNIQUE: Axial computed tomography images were obtained through the head/brain without intravenous contrast. Radiation dose: Total exam DLP = 801.03 mGy-cm. This CT exam was performed using one or more of the following dose reduction techniques: Automated exposure control, adjustment of the mA and/or kV according to patient size, and/or use of iterative reconstruction technique. FINDINGS: HEMORRHAGE: No intracranial hemorrhage. BRAIN: No mass effect or edema. No atrophy or chronic microvascular ischemic changes. VENTRICLES: Unremarkable. No hydrocephalus. CALVARIUM: Unremarkable. PARANASAL SINUSES: Unremarkable as visualized. No significant inflammatory changes. MASTOID AIR CELLS: Unremarkable as visualized. No inflammatory changes. OTHER FINDINGS: None. IMPRESSION: Normal CT of the Head. No intracranial hemorrhage. No evidence of acute infarct. No intracranial mass. The preliminary findings for this examination were reported by [facility] at 12:47 a.m. on 06/05/2018. There is concurrence of this report with the preliminary findings.
== END 2018-06-05 06:51 | disposition home or self-care (01) ==
LOC: H.ER 23:31
DX: G40.909 Epilepsy, unspecified, not intractable, without status epilepticus (principal); S09.90XA Unspecified injury of head, initial encounter
CPT/HCPCS: 70450; 82948; 96372; 99282; Q2009

== ENCOUNTER 2018-06-14 17:18 | Emergency (ER) | payer MEDICARE, MEDICAID ==
[2018-06-14] MEDS ORDERED: FOSPHENYTOIN IM STA (19:41)
[2018-06-14] MEDS ORDERED: Fosphenytoin 100 mg/2 ml Inj ONE (19:47)
[2018-06-14 20:27] VITALS: BP 126/84; PULSE 82; RESP 18; TEMP 98.2; O2SAT 99
--- NOTE | 2018-06-14 20:45 | ED PDOC ---
HPI: Seizure Time Seen by Provider: 06/14/18 19:09 Chief Complaint (Nursing): Seizure Chief Complaint (Provider): Seizure History Per: Patient History/Exam Limitations: no limitations Additional Complaint(s): Yessenia Carr is a 42 year old male with a past medical history of seizure disorder, presents to the emergency department after having seizure today. Patient states that due to insurance issues and difficulty with pharmacy, he has been unable to get his medications for the past x7 days. He further states he has been feeling "under the weather with a cold." Patient denies having fever. PMD: No provider Past Medical History Reviewed: Historical Data, Nursing Documentation, Vital Signs Vital Signs: Last Vital Signs Temp 98.2 F 06/14/18 20:26 Pulse 82 06/14/18 20:26 Resp 18 06/14/18 20:26 BP 126/84 06/14/18 20:26 Pulse Ox 99 06/14/18 20:26 - Medical History PMH: Seizures Denies: Chronic Kidney Disease - Surgical History Surgical History: No Surg Hx - Family History Family History: States: Unknown Family Hx - Home Medications Home Medications: Ambulatory Orders Medication Instructions Recorded Meclizine [Meclizine*] 25 mg PO Q6 PRN #20 tab 12/14/17 Phenytoin Sodium Extended 100 mg PO BID #30 capsule 03/01/18 [place], Disposable [Easy Touch 1 each MC BID #60 dis.needle 03/02/18 Hypodermic Needle] Fosphenytoin [Cerebyx] 500 mg IM BID #60 vial 03/28/18 Syringe, Disposable, 10 ml [Easy 1 each MC BID #60 disp.syrin 03/28/18 Touch Luer Lock Syringe] Phenytoin, Extended [Dilantin 100 mg PO TID #30 cer 04/23/18 [place]] Fosphenytoin [Cerebyx] 250 mg IM BID #10 vial 05/02/18 Fosphenytoin [Cerebyx] 500 mg IM BID 10 Days vial 05/08/18 Fosphenytoin [Cerebyx] 250 mg IJ BID #10 vial 05/29/18 - Allergies Allergies/Adverse Reactions: Allergies Allergy/AdvReac Type Severity Reaction Status Date / Time No Known Allergies Allergy Verified 06/14/18 17:37 Review of Systems ROS Statement: Except As Marked, All Systems Reviewed And Found Negative Constitutional: Negative for: Fever Neurological: Positive for: Seizures Physical Exam - Reviewed Nursing Documentation Reviewed: Yes Vital Signs Reviewed: Yes - Physical Exam Appears: Positive for: Non-toxic, No Acute Distress Head Exam: Positive for: ATRAUMATIC, NORMOCEPHALIC Skin: Positive for: Normal Color, Warm, Dry Eye Exam: Positive for: Normal appearance, EOMI, PERRL ENT: Positive for: Other (Edentulous) Neck: Positive for: Normal, Painless ROM, Supple Cardiovascular/Chest: Positive for: Regular Rate, Rhythm. Negative for: Murmur Respiratory: Positive for: Normal Breath Sounds. Negative for: Respiratory Distress Gastrointestinal/Abdominal: Positive for: Normal Exam, Soft. Negative for: Tenderness Back: Positive for: Normal Inspection. Negative for: L CVA Tenderness, R CVA Tenderness, Vertebral Tenderness Extremity: Positive for: Normal ROM. Negative for: Pedal Edema, Deformity Neurologic/Psych: Positive for: Alert, Oriented. Negative for: Motor/Sensory Deficits - ECG O2 Sat by Pulse Oximetry: 99 (RA) Pulse Ox Interpretation: Normal Medical Decision Making Medical Decision Making: Time: 1940 Impression: 42 year old male presenting with seizure in setting of medication noncompliance. Will give 1 dose of medication and strongly advise patient to follow up with neurology tomorrow. --Cerebyx 500 mg IM Scribe Attestation: Documented by Cy Centeno, acting as a scribe for Valerio Vieyra MD. Provider Scribe Attestation: All medical record entries made by the Scribe were at my direction and perso mary dictated by me. I have reviewed the chart and agree that the record accurately reflects my personal performance of the history, physical exam, medical decision making, and the department course for this patient. I have also personally directed, reviewed, and agree with the discharge instructions and disposition. Disposition - Clinical Impression Clinical Impression: Seizure disorder - Patient ED Disposition Is Patient to be Admitted: No - Disposition Referrals: [facility] [Outside] Disposition: Routine/Home Disposition Time: 20:26 Condition: GOOD Additional Instructions: DO NOT TAKE 5-HOUR ENERGY IT MAY PRECIPITATE A SEIZURE. Instructions: Seizures, Adult (DC) Forms: [employer] (Vietnamese)
== END 2018-06-14 20:25 | disposition home or self-care (01) ==
LOC: H.ER 17:18
DX: G40.909 Epilepsy, unspecified, not intractable, without status epilepticus (principal); Z91.14 Patient's other noncompliance with medication regimen
CPT/HCPCS: 96372; 99285; Q2009

== ENCOUNTER 2018-07-28 22:48 | Emergency (ER) | payer MEDICARE, MEDICAID ==
[2018-07-28 23:02] VITALS: RESP 18; TEMP 97.6
[2018-07-29] MEDS ORDERED: FOSPHENYTOIN IM STA (00:07)
--- NOTE | 2018-07-29 00:10 | ED PDOC ---
HPI: Seizure Time Seen by Provider: 07/28/18 23:50 Chief Complaint (Nursing): Seizure Chief Complaint (Provider): seizure History Per: Patient Additional Complaint(s): 43 y/o male presents requesting medication for his seizures. Patient states he has not been taking his medication for one week because his doctor has been on vacation. Patient states he had a seizure earlier today. Patient denies head injury; states he always has an "aura" before having a seizure so he knows to lay down and take deep breaths and let someone know. Denies headache, dizziness, vision changes, neck/back pain, vomiting, chest pain, shortness of breath, palpitations. Past Medical History Reviewed: Historical Data, Nursing Documentation, Vital Signs Vital Signs: Last Vital Signs Temp 97.6 F 07/28/18 22:59 Pulse 83 07/28/18 22:59 Resp 18 07/28/18 22:59 BP 120/78 07/28/18 22:59 Pulse Ox 98 07/28/18 22:59 - Medical History PMH: Seizures Denies: Chronic Kidney Disease - Family History Family History: States: Unknown Family Hx - Home Medications Home Medications: Ambulatory Orders Medication Instructions Recorded Meclizine [Meclizine*] 25 mg PO Q6 PRN #20 tab 12/14/17 Phenytoin Sodium Extended 100 mg PO BID #30 capsule 03/01/18 [place], Disposable [Easy Touch 1 each MC BID #60 dis.needle 03/02/18 Hypodermic Needle] Fosphenytoin [Cerebyx] 500 mg IM BID #60 vial 03/28/18 Syringe, Disposable, 10 ml [Easy 1 each MC BID #60 disp.syrin 03/28/18 Touch Luer Lock Syringe] Phenytoin, Extended [Dilantin 100 mg PO TID #30 cer 04/23/18 [place]] Fosphenytoin [Cerebyx] 250 mg IM BID #10 vial 05/02/18 Fosphenytoin [Cerebyx] 500 mg IM BID 10 Days vial 05/08/18 Fosphenytoin [Cerebyx] 250 mg IJ BID #10 vial 05/29/18 - Allergies Allergies/Adverse Reactions: Allergies Allergy/AdvReac Type Severity Reaction Status Date / Time No Known Allergies Allergy Verified 07/28/18 22:59 Review of Systems ROS Statement: Except As Marked, All Systems Reviewed And Found Negative Neurological: Positive for: Seizures Physical Exam - Reviewed Nursing Documentation Reviewed: Yes Vital Signs Reviewed: Yes - Physical Exam Appears: Positive for: Well, Non-toxic, No Acute Distress Head Exam: Positive for: ATRAUMATIC, NORMAL INSPECTION, NORMOCEPHALIC Skin: Positive for: Normal Color Eye Exam: Positive for: Normal appearance, EOMI, PERRL ENT: Positive for: Normal ENT Inspection Cardiovascular/Chest: Positive for: Regular Rate, Rhythm Respiratory: Positive for: Normal Breath Sounds Gastrointestinal/Abdominal: Positive for: Normal Exam Back: Positive for: Normal Inspection Extremity: Positive for: Normal ROM Neurological/Psych: Positive for: Awake, Alert, Oriented (x3) - ECG O2 Sat by Pulse Oximetry: 98 - Progress ED Course And Treament: -accucheck -Cerebryx IM Patient remains awake, alert, oriented x3 throughout ED visit Patient was strongly advised to follow up with Neurology tomorrow Patient requires no further intervention in the ED and is stable for discharge at this time Return precautions given Disposition - Clinical Impression Clinical Impression: Recurrent seizures - Patient ED Disposition Is Patient to be Admitted: No Counseled Patient/Family Regarding: Studies Performed, Diagnosis, Need For Followup - Disposition Disposition: Routine/Home Disposition Time: 02:46 Condition: IMPROVED Additional Instructions: Follow up with your Neurologist today Instructions: Seizures
[2018-07-29 05:17] VITALS: BP 117/81; PULSE 74; O2SAT 97
== END 2018-07-29 05:16 | disposition home or self-care (01) ==
LOC: H.ER 22:48
DX: G40.909 Epilepsy, unspecified, not intractable, without status epilepticus (principal); Z91.14 Patient's other noncompliance with medication regimen
CPT/HCPCS: 82948; 96372; 99282; Q2009

== ENCOUNTER 2018-09-12 00:24 | Emergency (ER) | payer MEDICARE, MEDICAID ==
[2018-09-12 00:43] VITALS: BMI 26.5
[2018-09-12] MEDS ORDERED: FOSPHENYTOIN IM STA (01:23)
[2018-09-12] MEDS ORDERED: Fosphenytoin 100 mg/2 ml Inj ONE (01:31)
--- NOTE | 2018-09-12 02:25 | ED PDOC ---
HPI: Seizure Time Seen by Provider: 09/12/18 01:12 Chief Complaint (Nursing): Seizure Chief Complaint (Provider): Seizure History Per: Patient History/Exam Limitations: no limitations Recent Seizure Activity Began: Just Before Arrival Number Of Seizures: One Length Of Seizures (Duration): Unknown Additional Complaint(s): Yessenia Carr is a 43 year old male, with a past medical history of seizure disorder, who presents to the emergency department for evaluation s/p seizure prior to arrival. Patient states for the last x4 days he's been unable to get his medications. When he regained consciousness, he noted the back of his head was mildly sore, however pain resolved with no lasting confusion. Patient states all he needs is an injection of his medications. He denies any weakness, numbness, dizziness, or other medical complaints. PMD: None provided Past Medical History Reviewed: Historical Data, Nursing Documentation, Vital Signs Vital Signs: Last Vital Signs Temp 97.7 F 09/12/18 00:35 Pulse 102 H 09/12/18 00:35 Resp 18 09/12/18 00:35 BP 137/90 09/12/18 00:35 Pulse Ox 97 09/12/18 00:35 Primary Care Provider: Procedure,Nonphys - Medical History PMH: Seizures Denies: Chronic Kidney Disease - Surgical History Surgical History: No Surg Hx - Family History Family History: States: Unknown Family Hx - Social History Current smoker - smoking cessation education provided: No Alcohol: None Drugs: Denies - Home Medications Home Medications: Ambulatory Orders Medication Instructions Recorded Meclizine [Meclizine*] 25 mg PO Q6 PRN #20 tab 12/14/17 Phenytoin Sodium Extended 100 mg PO BID #30 capsule 03/01/18 [place], Disposable [Easy Touch 1 each MC BID #60 dis.needle 03/02/18 Hypodermic Needle] Fosphenytoin [Cerebyx] 500 mg IM BID #60 vial 03/28/18 Syringe, Disposable, 10 ml [Easy 1 each MC BID #60 disp.syrin 03/28/18 Touch Luer Lock Syringe] Phenytoin, Extended [Dilantin 100 mg PO TID #30 cer 04/23/18 [place]] Fosphenytoin [Cerebyx] 250 mg IM BID #10 vial 05/02/18 Fosphenytoin [Cerebyx] 500 mg IM BID 10 Days vial 05/08/18 Fosphenytoin [Cerebyx] 250 mg IJ BID #10 vial 05/29/18 - Allergies Allergies/Adverse Reactions: Allergies Allergy/AdvReac Type Severity Reaction Status Date / Time No Known Allergies Allergy Verified 09/12/18 00:42 Review of Systems ROS Statement: Except As Marked, All Systems Reviewed And Found Negative Neurological: Positive for: Seizures. Negative for: Weakness, Numbness, Confusion, Headache, Dizziness Physical Exam - Reviewed Nursing Documentation Reviewed: Yes Vital Signs Reviewed: Yes - Physical Exam Appears: Positive for: No Acute Distress Head Exam: Positive for: ATRAUMATIC (No palpable deformity to the scalp, no lacerations), NORMAL INSPECTION, NORMOCEPHALIC Skin: Positive for: Normal Color, Warm, Dry Eye Exam: Positive for: Normal appearance, EOMI, PERRL Neck: Positive for: Normal, Painless ROM, Supple Cardiovascular/Chest: Positive for: Regular Rate, Rhythm. Negative for: Murmur Respiratory: Positive for: Normal Breath Sounds. Negative for: Respiratory Distress Gastrointestinal/Abdominal: Positive for: Normal Exam, Soft. Negative for: Tenderness, Guarding, Rebound Back: Positive for: Normal Inspection. Negative for: L CVA Tenderness, R CVA Tenderness, Vertebral Tenderness Extremity: Positive for: Normal ROM (upper and lower extremities). Negative for: Deformity, Swelling Neurological/Psych: Positive for: Awake, Alert, Normal Tone, Symmetric/Intact Strength, Oriented (x3), Gait (steady), Cerebellar Tests (normal), drum sander setter II-XII (intact). Negative for: Lethargic, Motor/Sensory Deficits, Facial Droop - ECG O2 Sat by Pulse Oximetry: 97 (RA) Pulse Ox Interpretation: Normal Medical Decision Making Medical Decision Making: Time: 01:12 Initial Impression: Breakthrough seizure due to noncompliance of medication. Will give IM meds, observe and discharge home Initial Plan: --Cerebyx 500 mg IM --Reevaluation 05:23 Patient with normal vitals, medications given. Patient advised to follow up with PMD for refills. Return parameters discussed. Scribe Attestation: Documented by Bharat Chairez, acting as a scribe for Tiffany Daniel. Provider Scribe Attestation: All medical record entries made by the Scribe were at my direction and personally dictated by me. I have reviewed the chart and agree that the record accurately reflects my personal performance of the history, physical exam, medical decision making, and the department course for this patient. I have also personally directed, reviewed, and agree with the discharge instructions and disposition. Disposition - Clinical Impression Clinical Impression: Epileptic seizures - Disposition Disposition: Routine/Home Disposition Time: 05:23 Condition: STABLE Additional Instructions: Take medications as prescribed by primary medical doctor and neurologist. Follow up with PMD in 3 to 5 days. Return to the emergency department if symptoms worsen or if new symptoms develop. Instructions: Seizures, Adult (DC) Forms: [employer] (Polish) Print Language: ROMANSH
[2018-09-12 05:25] VITALS: BP 135/82; PULSE 89; RESP 17; TEMP 97.8
[2018-09-13 03:48] VITALS: O2SAT 97
== END 2018-09-12 05:50 | disposition home or self-care (01) ==
LOC: H.ER 00:24
DX: G40.909 Epilepsy, unspecified, not intractable, without status epilepticus (principal); Z91.14 Patient's other noncompliance with medication regimen
CPT/HCPCS: 96372; 99283; Q2009